=== PATIENT | male | born 1960 | race Caucasian/White ===

== ENCOUNTER 2024-09-18 15:03 | Outpatient (AMB) | payer BC, SELFPAY ==
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
[2024-09-18 15:22] VITALS: BP 140/86; PULSE 85; RESP 16; TEMP 36.7; O2SAT 98; BMI 30.4
[2024-09-18 15:27] VITALS: BP 140/80
== END 2024-09-18 16:59 | disposition home or self-care (01) ==
LOC: HO.HMCFM 15:03
PROVIDERS: PCP Family Medicine; Visit Provider Family Medicine
DX: Z86.79 Personal history of other diseases of the circulatory system (principal); F10.21 Alcohol dependence, in remission; H91.90 Unspecified hearing loss, unspecified ear; I45.10 Unspecified right bundle-branch block; R03.0 Elevated blood-pressure reading, without diagnosis of hypertension; Z00.00 Encounter for general adult medical examination without abnormal findings

== ENCOUNTER → 2024-09-18 15:03 | Outpatient (BNVA) | payer BC, SELFPAY | PROVIDERS: PCP Family Medicine; Visit Provider Family Medicine | DX: Z00.00 Encounter for general adult medical examination without abnormal findings (principal); F10.21 Alcohol dependence, in remission; H91.90 Unspecified hearing loss, unspecified ear; I45.10 Unspecified right bundle-branch block; R03.0 Elevated blood-pressure reading, without diagnosis of hypertension; Z86.79 Personal history of other diseases of the circulatory system | CPT/HCPCS: 96127 ==